=== PATIENT | female | born 1955 | race African-American/Black ===

== ENCOUNTER 2022-02-20 21:09 | Inpatient (IN) | payer BC, OTHER ==
[~2022-02-20] VITALS: Ht 160 cm; Wt 55.8 kg
[~2022-02-20 21:09] MED LIST: ATOR20TA65 PO; AZIL1TAB3 PO
[2022-02-20] MEDS ORDERED: IPRATROPIUM BROMIDE (0.02%) 0.5MG/2.5ML NEB HHN STA (23:36)
[2022-02-20] MEDS ORDERED: ALBUTEROL (0.083%) 2.5MG/3ML NEB HHN STA (23:36)
[2022-02-20] MEDS ORDERED: FUROSEMIDE 20MG/2ML VIAL IVP ONE (23:45)
[2022-02-21] VITALS (10 sets, daily range): BP systolic 104–168; BP diastolic 58–97
[2022-02-21] MEDS ORDERED: LEVOFLOXACIN 500MG PREMIX 100 ML IV ONE
[2022-02-21 00:24] LABS: HEMATOCRIT. 32.3 % (36.0-48.0); HEMOGLOBIN. 10.7 g/dL (12.0-16.0); MEAN CORPUSCULAR HEMOGLOBIN 31.6 pg (28.0-32.0); MEAN CORPUSCULAR VOLUME 95.3 fL (81.0-99.0); MEAN PLATELET VOLUME 7.9 fl (7.4-10.4); PLATELET 371 x1000/uL (130-400); RED CELL DISTRIBUTION WIDTH 15.4 % (11.6-14.6)
[2022-02-21 00:42] LABS: CHLORIDE 98 mEq/L (98-107)
[2022-02-21 05:35] LABS: PLATELET ESTIMATE NORMAL
[2022-02-21] MEDS ORDERED: ALLO300T2 PO (12:20)
[2022-02-21 15:50] LABS: BG BASE EXCESS 6.9 mmol/L (-2.0-2.0); BG CARBOXYHEMOGLOBIN 0.3 % (0.5-1.5); BG FRACTION INSPIRED OXYGEN 21; BG HCO3 ACT 30.8 mmol/L (22.0-26.0); BG METHEMOGLOBIN 0.3 % (0.0-1.5); BG OXYGEN SATURATION 90.9 % (92.0-98.5); BG OXYHEMOGLOBIN 90.4 % (94.0-97.0); BG PCO2 41.2 mmHg (35.0-45.0); BG PH 7.492 (7.350-7.450); BG PO2 60.4 mmHg (75.0-100.0); BG SAMPLE SITE RIGHT RADIAL; BG TOTAL HEMOGLOBIN 11.3 g/dL (12.0-18.0); BG VENT MODE ROOM AIR
[2022-02-21] MEDS ORDERED: ACETAMINOPHEN 325MG TABLET PO PRN (17:00)
[2022-02-21] MEDS ORDERED: ONDANSETRON HCL 4MG/2ML INJ IV PRN (17:00)
[2022-02-21] MEDS ORDERED: ENOXAPARIN 40MG/0.4ML SYR SUBCUT SCH (17:30)
[2022-02-21 18:29] LABS: BASOPHILS % 1.2 % (0.0-2.0); EOSINOPHILS % 22.3 % (0.0-5.0); HEMATOCRIT. 32.5 % (36.0-48.0); HEMOGLOBIN. 10.7 g/dL (12.0-16.0); LYMPHOCYTES % 26.4 % (20.0-50.0); MEAN CORPUSCULAR HEMOGLOBIN 31.3 pg (28.0-32.0); MEAN PLATELET VOLUME 7.9 fl (7.4-10.4); MONOCYTES % 7.2 % (2.0-8.0); NEUTROPHILS % 42.9 % (40.0-76.0); PLATELET 375 x1000/uL (130-400); RED BLOOD CELL COUNT 3.41 mill/uL (4.2-5.4); RED CELL DISTRIBUTION WIDTH 15.3 % (11.6-14.6)
[2022-02-21 19:30] LABS: D-DIMER 3.88 mg/L FEU (<0.50); INR 1.1; PARTIAL THROMBOPLASTIN TIME 26.8 sec (23.4-31.0); PROTHROMBIN TIME 11.5 sec (9.6-11.0)
[2022-02-21] MEDS ORDERED: LEVOFLOXACIN 500MG PREMIX 100 ML IV SCH (20:00)
[2022-02-21] MEDS ORDERED: IOHEXOL-350 100 ML BOTTLE ONE (23:21)
[2022-02-22] VITALS (13 sets, daily range): BP systolic 111–165; BP diastolic 65–106
[2022-02-22] MEDS ORDERED: ALLOPURINOL 300 MG TABLET PO SCH (09:00)
[2022-02-22 09:07] LABS: HEMATOCRIT. 32.1 % (36.0-48.0); HEMOGLOBIN. 10.6 g/dL (12.0-16.0); MEAN CORPUSCULAR HEMOGLOBIN 31.2 pg (28.0-32.0); MEAN PLATELET VOLUME 8.2 fl (7.4-10.4); PLATELET 346 x1000/uL (130-400); RED BLOOD CELL COUNT 3.38 mill/uL (4.2-5.4)
[2022-02-22 09:34] LABS: CHLORIDE 99 mEq/L (98-107)
[2022-02-22] MEDS ORDERED: NALOXONE HCL 0.4MG/ML VIAL IV PRN (13:30)
[2022-02-22] MEDS ORDERED: HYDROCODONE/ACETAMINOPHEN 5/325MG TABLET PO PRN (13:30)
[2022-02-22] MEDS ORDERED: ATORVASTATIN CALCIUM 20MG TABLET PO SCH (21:00)
[2022-02-23 04:11] LABS: PLATELET ESTIMATE NORMAL
[2022-03-22] MEDS ORDERED: AMLO5TAB4 MT (16:57)
== END 2022-02-22 18:43 | disposition home or self-care (01) | DRG 186 ==
LOC: ER 21:09 → EDBEDREQTM 02-21 01:45 → EDBEDREQSVC 02-21 01:45 → EDBEDREQ 02-21 01:45 → MICUSO 02-21 01:49 → 5EST 02-21 10:00
PROVIDERS: ADMIT Internal Medicine; ATTEND Internal Medicine
PROC: 0W993ZZ Drainage of Right Pleural Cavity, Percutaneous Approach (ICD-10-PCS; principal; 2022-02-22)
DX: J90 Pleural effusion, not elsewhere classified (principal); J96.91 Respiratory failure, unspecified with hypoxia; J98.11 Atelectasis; I10 Essential (primary) hypertension; Z20.822 Contact with and (suspected) exposure to COVID-19; E78.00 Pure hypercholesterolemia, unspecified; F12.90 Cannabis use, unspecified, uncomplicated; E78.5 Hyperlipidemia, unspecified; F10.20 Alcohol dependence, uncomplicated; F17.210 Nicotine dependence, cigarettes, uncomplicated; Z86.711 Personal history of pulmonary embolism; Z82.49 Family history of ischemic heart disease and other diseases of the circulatory system; Z95.828 Presence of other vascular implants and grafts; Z79.899 Other long term (current) drug therapy; Z71.6 Tobacco abuse counseling
CPT/HCPCS: 32555; 36415; 36600; 71045; 71275; 74174; 80048; 80053; 82040; 82150; 82375; 82378; 82805; 83605; 83615; 83880; 84484; 85025; 85379; 86304; 87426; 88108; 88312; 93005; 94640; 99291; J1650; J1940; J1956; J2405; Q9967